=== PATIENT | male | born 1990 | race Caucasian/White ===

== ENCOUNTER 2019-11-22 14:22 | Emergency (ER) | payer MEDICAID ==
[~2019-11-22] VITALS: Ht 170.2 cm; Wt 77.2 kg
[2019-11-22] MEDS ORDERED: normal saline 1000ml 1,000 ML IV ONE ×2 (14:45→15:00)
[2019-11-22] MEDS ORDERED: ondansetron/PF 4mg/2ml inj IV ONE (15:00)
[2019-11-22 15:26] LABS: ABG BASE EXCESS -2.3 mmol/L (-2.0-2.0); ABG HCO3 22.7 mmol/L (22.0-26.0); ABG PCO2 (T) 40.2 mmHg (35.0-48.0); ABG PO2 (T) 65.7 mmHg (75.0-100.0); FCOHb 0.6 % (0.0-3.9); FMetHb 0.1 % (0.0-1.5); FO2Hb 93.3 % (94-97); TOTAL HEMOGLOBIN 13.7 G/dl (14.0-18.0)
[2019-11-22 15:30] LABS: ALANINE AMINOTRANSFERASE 33 U/L (12-78); ALBUMIN 4.2 G/DL (3.4-5.0); ALBUMIN/GLOBULIN RATIO 1.1 (1.1-1.5); ALKALINE PHOSPHATASE 102 IU/L (46-116); ANION GAP 15 (8-16); ASPARTATE AMINO TRANSFERASE 14 U/L (10-37); BILIRUBIN,TOTAL 0.5 MG/DL (0.1-1.0); BLOOD UREA NITROGEN 16 MG/DL (7-18); BUN/CREATININE RATIO 12.2 (5.4-32.0); CALCIUM 9.2 MG/DL (8.5-10.1); CHLORIDE 96 MMOL/L (99-107); CREATININE 1.31 MG/DL (0.60-1.10); LIPASE 97 U/L (73-393); POTASSIUM 3.9 MMOL/L (3.5-5.1); SODIUM 135 MMOL/L (135-145); TOTAL CARBON DIOXIDE 24.4 MMOL/L (24-32); TOTAL PROTEIN 8.1 G/DL (6.4-8.2); eGFR 64 ML/MIN
[2019-11-22 15:32] LABS: GLUCOSE 454 MG/DL (70-104)
[2019-11-22] MEDS ORDERED: diphenhydrAMINE 50 mg/ml inj IV ONE (16:05)
[2019-11-22] MEDS ORDERED: haloperidol lactate 5mg/ml inj IM ONE (16:05)
[2019-11-22] MEDS ORDERED: ONDA4TAB6 PO (16:19)
[2019-11-22 17:35] VITALS: BP 125/67
== END 2019-11-22 17:30 | disposition home or self-care (01) ==
LOC: ER 14:23
DX: R11.2 Nausea with vomiting, unspecified (principal); R73.9 Hyperglycemia, unspecified; F12.90 Cannabis use, unspecified, uncomplicated; Z79.899 Other long term (current) drug therapy
CPT/HCPCS: 36415; 36600; 80053; 82803; 82948; 83690; 85018; 96361; 96372; 96374; 96375; 99284; J1200; J1630; J2405; J7030

== ENCOUNTER 2020-01-30 19:24 | Emergency (ER) | payer MEDICAID ==
[~2020-01-30] VITALS: Ht 170.2 cm; Wt 72.7 kg
[~2020-01-30 19:24] MED LIST: ONDA4TAB6 PO
--- NOTE | 2020-01-30 19:51 | NUR ---
pt attempted to urinate, unable to at this time. will continue to try to collect sample
[2020-01-30 20:08] LABS: BASOPHILS % (AUTO) 0.2 % (0-1); EOSINOPHILS % (AUTO) 0.3 % (0-6); HEMATOCRIT 43.1 % (42.0-52.0); HEMOGLOBIN 14.7 g/dl (14.0-17.9); LYMPHOCYTES # (AUTO) 1.9 X10'3 (1.1-4.8); MEAN CORPUSCULAR HEMOGLOBIN 27.5 PG (27.0-31.0); MEAN CORPUSCULAR HGB CONC 34.1 g/dL (33.0-36.5); MEAN CORPUSCULAR VOLUME 80.5 FL (78-98); MEAN PLATELET VOLUME 8.2 FL (7.4-10.4); MONOCYTES # (AUTO) 1.1 X10'3 (0-0.9); MONOCYTES % (AUTO) 9.1 % (2-12); NEUTROPHILS # (AUTO) 9.3 X10'3 (1.8-7.7); NEUTROPHILS % (AUTO) 75.4 % (42-75); PLATELET COUNT 360 X10'3 (140-440); RED BLOOD COUNT 5.35 X10'6 (4.70-6.10); RED CELL DISTRIBUTION WIDTH 13.3 % (11.5-14.5); WHITE BLOOD COUNT 12.3 X10'3 (4.5-11.0)
[2020-01-30 20:20] LABS: ALANINE AMINOTRANSFERASE 21 U/L (12-78); ALBUMIN 4.6 G/DL (3.4-5.0); ALBUMIN/GLOBULIN RATIO 1.2 (1.1-1.5); ALKALINE PHOSPHATASE 98 IU/L (46-116); ANION GAP 11 (8-16); ASPARTATE AMINO TRANSFERASE 11 U/L (10-37); BILIRUBIN,TOTAL 0.7 MG/DL (0.1-1.0); BLOOD UREA NITROGEN 24 MG/DL (7-18); BUN/CREATININE RATIO 18.8 (5.4-32.0); CHLORIDE 95 MMOL/L (99-107); CREATININE 1.28 MG/DL (0.60-1.10); GLUCOSE 296 MG/DL (70-104); LIPASE 73 U/L (73-393); POTASSIUM 3.7 MMOL/L (3.5-5.1); SODIUM 135 MMOL/L (135-145); TOTAL CARBON DIOXIDE 28.6 MMOL/L (24-32); TOTAL PROTEIN 8.4 G/DL (6.4-8.2); eGFR 66 ML/MIN
[2020-01-30] MEDS ORDERED: ondansetron/PF 4mg/2ml inj IV ONE (20:35)
[2020-01-30] MEDS ORDERED: normal saline 1000ML IV soln IVB ONE (20:35)
[2020-01-30] MEDS ORDERED: normal saline 1000ml 1,000 ML IV ONE ×2 (21:10)
[2020-01-30] MEDS ORDERED: diphenhydrAMINE 50 mg/ml inj IV ONE (21:25)
[2020-01-30] MEDS ORDERED: proCHLORperazine 10 MG/2 ml inj IV ONE (21:25)
[2020-01-30] MEDS ORDERED: LORazepam 2 mg/ml vial IV ONE ×2 (22:00→22:40)
[2020-01-30 22:14] LABS: CLARITY,URINE CLEAR (Clear); COLOR,URINE YELLOW (Yellow); GLUCOSE, URINE 500 mg/dl (Neg); KETONES,URINE 40 mg/dl (Neg); LEUKOCYTE ESTERASE ,URINE NEGATIVE (Neg); NITRITES, URINE NEGATIVE (Neg); OCCULT BLOOD,URINE MODERATE (Neg); PROTEIN,URINE 30 mg/dl (Neg)
[2020-01-30 22:18] LABS: UA COLLECTION TYPE URINAL
[2020-01-30 22:32] LABS: SQUAMOUS EPITHELIAL CELL,UR FEW /LPF (FEW); WBC,URINE 0-4 /HPF (0-4)
[2020-01-30 22:33] LABS: BACTERIA,URINE 1+ /HPF (Neg); MUCUS STRANDS FEW /LPF (Neg)
[2020-01-30] MEDS ORDERED: ONDA4TAB6 PO (22:56)
[2020-01-30 23:12] VITALS: BP 113/71
== END 2020-01-30 23:18 | disposition home or self-care (01) ==
LOC: ER 19:24
DX: E11.65 Type 2 diabetes mellitus with hyperglycemia (principal); R11.2 Nausea with vomiting, unspecified; F12.90 Cannabis use, unspecified, uncomplicated; Z79.899 Other long term (current) drug therapy
CPT/HCPCS: 36415; 80053; 81001; 82948; 83690; 85025; 96361; 96374; 96375; 99284; J0780; J1200; J2060; J2405; J7030